=== PATIENT | female | born 1975 | race Caucasian/White ===

== ENCOUNTER 2021-04-12 05:53 | Emergency (ER) | payer MEDICARE, OTHER ==
[2021-04-12 06:44] LABS: HEMOGLOBIN 13.3 gm/dl (12.3-15.3); RED BLOOD COUNT 4.14 M/UL (4.00-5.10); WHITE BLOOD COUNT 9.6 K/UL (4.5-11.0)
[2021-04-12 06:58] LABS: BUN/CREATININE RATIO 5 (0-10)
[2021-04-12] MEDS ORDERED: ZOFRAN4 MG PO (09:43)
[2021-04-12] MEDS ORDERED: NAPROSYN EC 50500 MG PO (09:43)
== END 2021-04-12 11:11 | disposition home or self-care (01) ==
LOC: ER1 05:53
PROVIDERS: Family Medicine
DX: R07.9 Chest pain, unspecified (principal); R11.2 Nausea with vomiting, unspecified; I10 Essential (primary) hypertension; F17.210 Nicotine dependence, cigarettes, uncomplicated
CPT/HCPCS: 71045; 71275; 80053; 82550; 82553; 82962; 83874; 84484; 85025; 85379; 93005; 96374; 99285; J2405; Q9967